=== PATIENT | female | born 1950 | race Caucasian/White ===

== ENCOUNTER 2016-07-30 17:35 | Emergency (ER) | payer MEDICARE, BC ==
[2016-07-30 17:44] VITALS: BP 155/94
[2016-07-30] MEDS ORDERED: LORazepam 2 MG/ML MDV IVPUSH ONE (18:14)
--- NOTE | 2016-07-30 18:15 | EDM.PDOC ---
ED HPI GENERAL MEDICAL PROBLEM - General Chief Complaint: Cardiovascular Problem Stated Complaint: ABNORMAL LABS, HEART PALPITATIONS Time Seen by Provider: 07/30/16 17:53 Source of Information: Reports: Patient History Limitations: Reports: No Limitations - History of Present Illness INITIAL COMMENTS - FREE TEXT/NARRATIVE: Patient is a 66-year-old female who presents to the ED having palpitations and feeling lightheaded. Patient has been seeing Dr. Murrieta her PCP on and off for the past 2 weeks for the palpitations. Patient had blood work obtained July 29, 2016. Patient has results of CBC but does not recall the other two labs obtained. Patient was told she may have a B12 vitamin deficiency with MCV of 100. Patient has started taking B12 2500 tab one tab every morning. At approximately 7:30 she took this B12 tab and is noted midmorning to be mildly lightheaded. The patient states she has recently been excessively worried about everything. She felt nervous and noticed blood pressure coming up. She felt like she had more palpitations. She is concerned that the vitamin B12 is causing this. Dr. Murrieta had obtained a 12-lead at the clinic with no abnormalities noted. Patient does not have any chest pain, shortness of breath, nausea/vomiting, fever/chills, pre-/syncopal episodes. States she is quite nervous about sons current state. Son has PTSD and has been in treatment and recently changed jobs. States she thinks about it and becomes panicky and notices the palpitations to worsen. Patient has been eating and drinking well. Past medical history: Palpitations, anxiety, acid reflux Medications: B12, Zantac, Ramapril, Fish oil, milk thisel, glucosamine, potassium, MVI, Vitamin C. SH: none stated Smoking/Alcohol/Recreation Drugs: none stated. Duration: Intermittent Location: Reports: Chest Quality: Reports: Other (palpiations) Severity: Mild Improves with: Reports: Rest Worsens with: Reports: Other (worrying) Associated Symptoms: Reports: No Other Symptoms Treatments PIGEON F[employer]CIER: Reports: Other (see below) (See HPI) - Related Data Allergies Allergy/AdvReac Type Severity Reaction Status Date / Time No Known Allergies Allergy Verified 07/30/16 17:40 Home Meds: Home Meds Ramipril [Altace] 5 mg PO DAILY 09/23/14 [History] Calcium Vitamin D 1 tab PO DAILY 01/13/15 [History] Docusate Sodium [Colace] 200 mg PO DAILY 01/13/15 [History] Fish Oil/[place]-3 Fatty Acids [Fish Oil] 1,000 mg PO DAILY 01/13/15 [History] Glucosamine/D3/Boswellia Aundrea [Glucosamine Complex Tablet] 1 tab PO DAILY 01/13 [History] Ibuprofen [Motrin] 200 mg PO ASDIRECTED PRN 01/13/15 [History] Methylcellulose [Citrucel] 1,000 mg PO DAILY 01/13/15 [History] Potassium Gluconate [Potassium] 99 mg PO DAILY 01/13/15 [History] Past Medical History Cardiovascular History: Reports: Hypertension Gastrointestinal History: Reports: Other (See Below) Other Gastrointestinal History: acid reflux Social & Family History - Tobacco Use Smoking Status *Q: Never Smoker Second Hand Smoke Exposure: No - Recreational Drug Use Recreational Drug Use: No ED ROS GENERAL - Review of Systems Review Of Systems: ROS reveals no pertinent complaints other than HPI. ED EXAM, GENERAL - Physical Exam Exam: See Below Exam Limited By: No Limitations General Appearance: Alert, WD/WN, Anxious Eye Exam: Bilateral Eye: PERRL Ears: Hearing Grossly Normal Nose: Normal Inspection Throat/Mouth: Normal Inspection, Normal Oropharynx, Normal Voice, No Airway Compromise Neck: Normal Inspection, Supple Respiratory/Chest: No Respiratory Distress, Lungs Clear, Normal Breath Sounds, No Accessory Muscle Use, Chest Non-Tender Cardiovascular: Normal Peripheral Pulses, Regular Rate, Rhythm, No JVD, No Murmur Peripheral Pulses: 2+: Radial (L), Radial (R) GI/Abdominal: Normal Bowel Sounds, Soft, Non-Tender, No Organomegaly, No Distention Back Exam: Normal Inspection, Full Range of Motion Extremities: Normal Inspection, Normal Range of Motion, Non-Tender, No Pedal Edema, Normal Capillary Refill Neurological: Alert, Oriented, CN II-XII Intact, Normal Cognition, Normal Gait, No Motor/Sensory Deficits Psychiatric: Normal Affect, Normal Mood Skin Exam: Warm, Dry, Intact, Normal Color, No Rash Course - Vital Signs Last Recorded V/S: Last Vital Signs Temp 98.3 F 07/30/16 17:40 Pulse 80 07/30/16 17:40 Resp 12 07/30/16 17:40 BP 155/94 H 07/30/16 17:40 Pulse Ox 98 07/30/16 17:40 - Orders/Labs/Meds Orders: Active Orders 24 hr Category Date Time Status EKG Documentation Completion [RC] STAT Care 07/30/16 18:14 Active Meds: Medications Discontinued Medications Generic Name Dose Route Start Last Admin Trade Name Jose PRN Reason Stop Dose Admin Lorazepam 1 mg 07/30/16 18:14 07/30/16 18:36 Ativan IVPUSH 07/30/16 18:15 1 mg ONETIME ONE Administration - Re-Assessments/Exams Free Text/Narrative Re-Assessment/Exam: 07/30/16 18:14 Ordered EKG and ativan 1mg IVP. EKG sinus rhythm at rate of 72, normal P axis, MO interval is 150, QTC 425, no acute ST changes noted. 07/30/16 19:18 Reassessment, patient is much more relaxed after administration of the Ativan. Blood pressure has come down to 130 systolic. She remains to have palpitations significantly decreased with the medication. Cardiac monitoring has not revealed any ectopic beats. As discussed we do believe this is related to anxiety with increased worrying about her son's PTSD and change of employment. She has been seen by Dr. Murrieta with close followup planned for this week. We'll discharge the patient home with instructions to followup with her primary care provider as scheduled for further evaluation and treatment of anxiety like symptoms. Patient had no additional questions or concerns and agreed with plan. Discharge instructions as documented. Departure - Departure Time of Disposition: 19:21 Disposition: Home, Self-Care 01 Condition: good Clinical Impression: Palpitations, Anxiety Instructions: Panic Attacks, Palpitations Referrals: Elizabeth Smith MD [Primary Care Provider] - Forms: ED Department Discharge Additional Instructions: As discussed I do believe the sensation of palpitations is precipitated by increased worrying about sons current situation. You were given a medication called ativan in the E.D. This medication caused you to relax. Palpitations were decreased with no abnormal beats noted on heart monitor. Will have you see your PCP in the next 1 wk for reevaluation and treatment for anxiety. In addition B12 supplement common side effects include: Headache,Itching,Swelling, Nervousness and anxiousness, and Involuntary or uncontrollable movements. I would hold off taking these supplements until evaluated by PCP. Return to the E.D. for any new or worsening symptoms as discussed. No driving this evening since receiving a sedative medication. - My Orders Last 24 Hours: My Active Orders 07/30/16 18:14 EKG Documentation Completion [RC] STAT - Assessment/Plan Last 24 Hours: My Active Orders 07/30/16 18:14 EKG Documentation Completion [RC] STAT
== END 2016-07-30 19:29 | disposition home or self-care (01) ==
LOC: JD.ED 17:35
DX: F41.9 Anxiety disorder, unspecified (principal); R00.2 Palpitations; K21.9 Gastro-esophageal reflux disease without esophagitis; I10 Essential (primary) hypertension; Z79.899 Other long term (current) drug therapy
CPT/HCPCS: 93005; 96374; 99285; J2060; 99284

== ENCOUNTER 2016-12-01 18:46 | Emergency (ER) | payer MEDICARE, BC ==
[2016-12-01 18:55] VITALS: BP 197/70
--- NOTE | 2016-12-01 19:04 | EDM.PDOC ---
ED HPI GENERAL MEDICAL PROBLEM - General Chief Complaint: Gastrointestinal Problem Stated Complaint: DIZZINESS, NAUSEA, DIARRHEA, MUSCLE SPASM Time Seen by Provider: 12/01/16 19:03 - History of Present Illness INITIAL COMMENTS - FREE TEXT/NARRATIVE: 66-year-old female presents emergency room with concerns of dehydration, diarrhea nausea and muscle aches. This started a day ago. This progressively been getting worse she has not vomited but is getting more nauseous the patient is also been having increased problems with nasal congestion she took a Sudafed today and this ask up on her blood pressure. The patient is starting to get achy. She's not had any chest pain or shortness of breath no breathing difficulties other than her chronic sinus symptoms. Patient has not had any burning or frequency with urination no flank pain or difficulty emptying. - Related Data Allergies Allergy/AdvReac Type Severity Reaction Status Date / Time cephalexin Allergy Cannot Verified 12/01/16 18:56 Remember Home Meds: Home Meds Ramipril [Altace] 5 mg PO DAILY 09/23/14 [History] Calcium Vitamin D 1 tab PO DAILY 01/13/15 [History] Docusate Sodium [Colace] 200 mg PO DAILY 01/13/15 [History] Fish Oil/[place]-3 Fatty Acids [Fish Oil] 1,000 mg PO DAILY 01/13/15 [History] Glucosamine/D3/Boswellia Aundrea [Glucosamine Complex Tablet] 1 tab PO DAILY 01/13 [History] Ibuprofen [Motrin] 200 mg PO ASDIRECTED PRN 01/13/15 [History] Methylcellulose [Citrucel] 1,000 mg PO DAILY 01/13/15 [History] Potassium Gluconate [Potassium] 99 mg PO DAILY 01/13/15 [History] Multivitamin [Multivitamins] 1 each PO DAILY 12/01/16 [History] Ondansetron [Zofran ODT] 4 mg PO Q6H PRN #10 tab.dis 12/01/16 [Rx] Past Medical History Cardiovascular History: Reports: Hypertension Gastrointestinal History: Reports: GERD Other Gastrointestinal History: acid reflux Social & Family History - Tobacco Use Smoking Status *Q: Former Smoker Used Tobacco, but Quit: Yes Month Tobacco Last Used: 40 years ago Second Hand Smoke Exposure: No - Caffeine Use Caffeine Use: Reports: Coffee - Recreational Drug Use Recreational Drug Use: No ED ROS GENERAL - Review of Systems Review Of Systems: See Below Constitutional: Reports: Malaise, Weakness, Fatigue. Denies: Night Sweats HEENT: Reports: Rhinitis (She has chronic allergic rhinitis), Sinus Problem Respiratory: Reports: No Symptoms. Denies: Shortness of Breath, Wheezing, Cough , Sputum Cardiovascular: Reports: No Symptoms. Denies: Chest Pain, Palpitations Endocrine: Reports: No Symptoms GI/Abdominal: Reports: Diarrhea. Denies: Abdominal Pain, Constipation, Nausea, Vomiting : Reports: No Symptoms Musculoskeletal: Reports: Other (Muscle aches getting worse with the illness) Skin: Reports: No Symptoms ED EXAM, GI/ABD - Physical Exam Exam: See Below Exam Limited By: No Limitations General Appearance: Alert, No Apparent Distress Head: Atraumatic, Normocephalic Neck: Normal Inspection, Supple, Non-Tender, Full Range of Motion. No: Lymphadenopathy (L), Lymphadenopathy (R) Respiratory/Chest: No Respiratory Distress, Lungs Clear, Normal Breath Sounds Cardiovascular: Normal Peripheral Pulses, Regular Rate, Rhythm, No Edema GI/Abdominal Exam: Normal Bowel Sounds, Soft, Non-Tender. No: Distended, Guarding, Rigid, Rebound, Tender Back Exam: Normal Inspection. No: CVA Tenderness (L), CVA Tenderness (R) Neurological: Alert, Oriented, Normal Cognition Psychiatric: Normal Affect, Normal Mood Lymphatic: No Adenopathy Course - Vital Signs Last Recorded V/S: Last Vital Signs Temp 36.1 C 12/01/16 18:53 Pulse 83 12/01/16 18:53 Resp 19 12/01/16 18:53 BP 197/70 H 12/01/16 18:53 Pulse Ox 100 12/01/16 18:53 - Orders/Labs/Meds Labs: Laboratory Tests 12/01/16 12/01/16 Range/Units 19:50 19:50 WBC 8.14 (3.98-10.04) K/mm3 RBC 3.88 L (3.98-5.22) M/mm3 Hgb 12.8 (11.2-15.7) gm/L Hct 37.2 (34.1-44.9) % MCV 95.9 H (79.4-94.8) fl MCH 33.0 H (25.6-32.2) pg MCHC 34.4 (32.2-35.5) g/dl RDW Std Deviation 42.7 (36.4-46.3) fL Plt Count 377 H (182-369) K/mm3 MPV 9.8 (9.4-12.3) fl Neutrophils % (Manual) 68 H (40-60) % Band Neutrophils % 0 (0-10) % Lymphocytes % (Manual) 27 (20-40) % Atypical Lymphs % 0 % Monocytes % (Manual) 4 (2-10) % Eosinophils % (Manual) 1 (0.7-5.8) % Basophils % (Manual) 0 L (0.1-1.2) Platelet Estimate Adequate RBC Morph Comment Normal Sodium 131 L (136-145) mEq/L Potassium 3.6 (3.5-5.1) mEq/L Chloride 97 L (98-107) mEq/L Carbon Dioxide 27 (21-32) mEq/L Anion Gap 10.6 (5-15) BUN 11 (7-18) mg/dL Creatinine 0.6 (0.55-1.02) mg/dL Est Cr Clr Drug Dosing 74.23 mL/min Estimated GFR (MDRD) > 60 (>60) mL/min BUN/Creatinine Ratio 18.3 H (14-18) Glucose 121 H (80-115) mg/dL Calcium 8.9 (8.5-10.1) mg/dL Magnesium 1.9 (1.8-2.4) mg/dl Total Bilirubin 0.3 (0.2-1.0) mg/dL AST 18 (15-37) U/L ALT 24 (14-59) U/L Alkaline Phosphatase 62 (46-116) U/L Total Protein 7.5 (6.4-8.2) g/dl Albumin 3.9 (3.4-5.0) g/dl Globulin 3.6 gm/dL Albumin/Globulin Ratio 1.1 (1-2) Meds: Medications Discontinued Medications Generic Name Dose Route Start Last Admin Trade Name Freq PRN Reason Stop Dose Admin Lactated Ringer's 1,000 mls @ 999 mls/hr 12/01/16 19:16 12/01/16 19:55 Ringers, Lactated IV 12/01/16 20:16 999 mls/hr .BOLUS ONE Administration Ondansetron HCl 4 mg 12/01/16 19:16 12/01/16 19:54 Zofran IVPUSH 12/01/16 19:17 4 mg ONETIME ONE Administration - Re-Assessments/Exams Free Text/Narrative Re-Assessment/Exam: 12/01/16 19:24 We'll check labs however hold off on UA she's not having any symptoms. Sounds like she's getting a little dry from the diarrhea could be developing worsening nausea and potentially vomiting down the road we'll trial her on Zofran and make sure she's taken by mouth fluids prior to discharge we'll give at least 1 L of LR. 12/01/16 21:34 Patient doing much better after a liter of fluid and 4 mg of Zofran. She like to go home at this point her labs are not horribly suggestive dehydration however her sodium is down a little bit at 131 we'll have her use lots of Gatorade push fluids and give her prescription for Zofran offered to give her a prescription from the machine in the waiting room she just rather wait to the morning and go to her pharmacy. Departure - Departure Time of Disposition: 21:35 Disposition: Home, Self-Care 01 Clinical Impression: Gastroenteritis - Discharge Information Prescriptions: Ondansetron [Zofran ODT] 4 mg PO Q6H PRN #10 tab.dis PRN Reason: Nausea/Vomiting Referrals: Elizabeth Smith MD [Primary Care Provider] - Forms: ED Department Discharge Additional Instructions: Return to the emergency room with any questions problems or worsening symptoms. Clear liquid diet for the next 24 hours and slowly advance as tolerated. You been given a prescription for Zofran this is to help control nausea and vomiting use every 6 hours as needed. This will dissolve on your tongue so you do not need to swallow it.
[2016-12-01] MEDS ORDERED: Ondansetron 4 MG/2 ML SDV IVPUSH ONE (19:16)
[2016-12-01] MEDS ORDERED: Lactated Ringers 1,000 ML IV ONE (19:16)
== END 2016-12-01 21:48 | disposition home or self-care (01) ==
LOC: JD.ED 18:46
DX: K52.9 Noninfective gastroenteritis and colitis, unspecified (principal); I10 Essential (primary) hypertension; K21.9 Gastro-esophageal reflux disease without esophagitis; Z88.1 Allergy status to other antibiotic agents; Z79.899 Other long term (current) drug therapy; Z87.891 Personal history of nicotine dependence
CPT/HCPCS: 36415; 80053; 83735; 85025; 96361; 96374; 99284; J2405; J7120